=== PATIENT | male | born 1955 | race Hispanic/Latino ===

== ENCOUNTER → 2023-03-20 | Emergency (ER) | payer OTHER ==
[~2023-03-20] MED LIST: ALBUTEROL 2.5 MG/3 ML NEB SOL ONE; AZITHROMYCIN 250 MG TAB ONE; predniSONE 20 MG TAB ONE
[2023-03-20 10:53] LABS: Absolute Lymphocytes (CBC) 1.6 K/uL (0.7-4.9); Hematocrit 39.7 % (39.6-49.0); Lymphocytes % 20.2 % (15.3-44.8); MPV 7.3 fL (7.6-11.3); Platelets 302 thou/uL (152-406); RBC Red Blood Cell Count 4.56 M/uL (4.33-5.43)
[2023-03-20 11:14] LABS: Potassium 3.4 mEq/L (3.5-5.1); Troponin High Sensitivity 12.2 pg/mL (<58.9)
--- NOTE | 2023-03-20 11:36 | RAD REPORT ---
EXAM DESCRIPTION: Kristen Single View03/20/2023 11:08 am CLINICAL HISTORY: Shortness of breath COMPARISON: none FINDINGS: The lungs are moderately hyperaerated Mild interstitial opacities within the lung bases probably chronic Heart is normal size. Pacemaker leads in place IMPRESSION: COPD without visualization acute abnormality
--- NOTE | 2023-03-20 12:08 | EDPHYS ---
Physician Documentation [facility] Name: Dung Bone Age: 68 yrs Sex: Male : 1955 Arrival Date: 03/20/2023 Time: 09:51 Bed 10 Private MD: ED Physician Dago Ayala HPI: 03/20 10:29 This 68 yrs old Male presents to ER via Ambulatory with complaints of ec2 Breathing Difficulty, Pain All Over. 10:29 Patient arrives today due to concern for difficulty breathing. Patient reports a ec2 history of COPD, is on multiple inhalers however has not been taking them. Patient reports he been having a frequent productive cough. Patient reports no fevers or chills, no nausea or vomiting.. Historical: - Allergies: 10: No Known Allergies; iw - Home Meds: 10: budesonide-formoterol 160-4.5 mcg/actuation inhalation HFA Aerosol Inhaler [Active]; iw - PMHx: 10:26 copd; asbestosis; CVA; iw - PSHx: 10: PACEMAKER; CABG; iw - Social history:: Smoking status: Patient uses street drugs, marijuana. ROS: 10:29 Constitutional: as per hpi ec2 Exam: 10:29 Constitutional: GEN: NAD Head: atraumatic Eyes: EOMI Ears: External ears are ec2 normal. CV: regular rate LUNGS: no respiratory distress, occasional scattered wheeze noted, no rales ABD: non-distended SKIN: no evidence of rashes MSK: no evidence of trauma NEURO: moves all extremities equally Vital Signs: 10:29 BP 175 / 92; Pulse 89; Resp 19; Temp 98.5(O); Pulse Ox 96% on R/A; Weight 68.95 kg; iw Height 5 ft. 6 in. ; 12:13 BP 154 / 94; Pulse 74; Resp 19; Pulse Ox 99% on R/A; iw 10:29 Body Mass Index 24.53 (68.95 kg, 167.64 cm) iw MDM: 10:28 Patient medically screened. ec2 10:29 Data reviewed: vital signs. ED course: Patient arrives today for evaluation of cough ec2 and cold symptoms along with shortness of breath. Examination remarkable for pulmonary findings as noted above. Will obtain lab work, EKG, chest x-ray. Currently considering process such as COPD exacerbation, pneumonia, viral infection, ACS. Will treat the patient with DuoNeb, steroids and azithromycin.. 11:45 ED course: Metabolic profile pertinent for slight hypokalemia, CBC is reassuring. ec2 Troponin within normal ranges. Chest x-ray shows COPD without focal infiltrate, flu and COVID-negative. I suspect COPD exacerbation, will discharge home with instruction for inhalers as well as started on azithromycin and steroids. . 12:07 ED course: Patient already has inhalers at home, will discharge with steroids and ec2 azithromycin.. 12:09 ED course: EKG independently reviewed and interpreted by me, shows normal sinus rhythm, ec2 rate 77, no acute ST segment elevations, intervals otherwise nonconcerning. . 12 10:28 Order name: Basic Metabolic Panel; Complete Time: 11:45 ec2 03/20 10:28 Order name: CBC with Diff; Complete Time: 11:45 ec2 03/20 10:28 Order name: Troponin HS; Complete Time: 11:45 ec2 03/20 10:28 Order name: COVID-19 SARS RT PCR; Complete Time: 11:45 ec2 03/20 10:28 Order name: Influenza Screen (a \T\ B); Complete Time: 11:45 ec2 03/20 10:28 Order name: XRAY Chest (1 view); Complete Time: 11:45 ec2 03/20 10:28 Order name: EKG; Complete Time: 10:29 ec2 03/20 10:28 Order name: Cardiac monitoring; Complete Time: 12:09 ec2 03/20 10:28 Order name: EKG - Nurse/Tech; Complete Time: 12:09 ec2 03/20 10:28 Order name: IV Saline Lock; Complete Time: 11:04 ec2 03/20 10:28 Order name: Labs collected and sent; Complete Time: 11:04 ec2 03/20 10:28 Order name: O2 Per Protocol; Complete Time: 11:04 ec2 03/20 10:28 Order name: O2 Sat Monitoring; Complete Time: 11:04 ec2 Administered Medications: 11:27 Drug: DuoNeb Nebulize (3:1) (2.5 mg - 0.5 mg) 3 ml Nebulizer once Route: Nebulizer; 11:56 Follow up: Response: No adverse reaction ap3 11:27 Drug: predniSONE PO 40 mg PO once Route: PO; iw 11:56 Follow up: Response: No adverse reaction ap3 11:27 Drug: AZITHromycin PO 500 mg PO once Route: PO; iw 11:56 Follow up: Response: No adverse reaction ap3 Disposition Summary: 03/20/23 12:07 Discharge Ordered Notes: Location: Home ec2 Condition: Stable ec2 Diagnosis - COPD/ Chronic obstructive pulmonary disease with (acute) exacerbation ec2 Followup: ec2 - With: Private Physician - When: - Reason: Recheck today's complaints Discharge Instructions: - Discharge Summary Sheet ec2 - Chronic Obstructive Pulmonary Disease Exacerbation ec2 Forms: - Medication Reconciliation Form ec2 - Thank You Letter ec2 - Antibiotic Education ec2 - Prescription Opioid Use ec2 - Patient Portal Instructions ec2 - Leadership Thank You Letter ec2 Prescriptions: - azithromycin 250 mg Oral tablet - take 1 tablet ORAL route every morning for 4 days; 4 tablet; Refills: 0, ec2 Product Selection Permitted - Prednisone 20 mg Oral Tablet - take 2 tablets ORAL route once daily for 5 days; 10 tablet; Refills: 0, Product ec2 Selection Permitted Signatures: Dispatcher [employer] Ann Marie Dumont RN RN iw Dago Ayala MD MD ec2 Rima King RN ap3
--- NOTE | 2023-03-20 12:08 | ER ---
Nurse's Notes [facility] Name: Dung Bone Age: 68 yrs Sex: Male : 1955 Arrival Date: 03/20/2023 Time: 09:51 Bed 10 Private MD: Diagnosis: COPD/ Chronic obstructive pulmonary disease with (acute) exacerbation Presentation: 03/20 10:25 Chief complaint: Patient states: lungs are hurting for a couple days, +SOB , iw +productive cough , no fever. 10:25 Coronavirus screen: Client presents with at least one sign or symptom that may indicate iw coronavirus-19. Ebola Screen: Patient negative for fever greater than or equal to 101.5 degrees Fahrenheit, and additional compatible Ebola Virus Disease symptoms Patient denies exposure to infectious person. Patient denies travel to an Ebola-affected area in the 21 days before illness onset. No symptoms or risks identified at this time. 10:25 Method Of Arrival: Ambulatory iw 10:25 Acuity: ALEX 3 iw 10:29 Initial Sepsis Screen: Does the patient meet any 2 criteria? No. Patient's initial iw sepsis screen is negative. Does the patient have a suspected source of infection? No. Patient's initial sepsis screen is negative. Risk Assessment: Do you want to hurt yourself or someone else? Patient reports no desire to harm self or others. Onset of symptoms was March 18, 2023. Historical: - Allergies: 10:26 No Known Allergies; iw - Home Meds: 10:25 budesonide-formoterol 160-4.5 mcg/actuation inhalation HFA Aerosol Inhaler [Active]; iw - PMHx: 10:26 copd; asbestosis; CVA; iw - PSHx: 10:29 PACEMAKER; CABG; iw - Social history:: Smoking status: Patient uses street drugs, marijuana. Screenin:09 [facility] ED Fall Risk Assessment (Adult) Score/Fall Risk Level. Abuse screen: Denies iw threats or abuse. Denies injuries from another. Nutritional screening: No deficits noted. Tuberculosis screening: No symptoms or risk factors identified. Assessment: 12:09 Reassessment: Patient appears in no apparent distress at this time. Patient and/or iw family updated on plan of care and expected duration. Pain level reassessed. Patient is alert, oriented x 3, equal unlabored respirations, skin warm/dry/pink. Patient states feeling better. Vital Signs: 10:29 BP 175 / 92; Pulse 89; Resp 19; Temp 98.5(O); Pulse Ox 96% on R/A; Weight 68.95 kg; iw Height 5 ft. 6 in. ; 12:13 BP 154 / 94; Pulse 74; Resp 19; Pulse Ox 99% on R/A; iw 10:29 Body Mass Index 24.53 (68.95 kg, 167.64 cm) iw ED Course: 09:52 Patient arrived in ED. rg4 09:58 Dago Ayala MD is Attending Physician. ec2 10:25 Triage completed. iw 10:47 Ann Marie Melvin, RN is Primary Nurse. iw 10:47 Arm band placed on. iw 11:00 Inserted saline lock: 20 gauge in right antecubital area, using aseptic technique. iw 11:10 XRAY Chest (1 view) In Process Unspecified. EDMS 12:09 No provider procedures requiring assistance completed. iw 12:29 IV discontinued, intact, bleeding controlled, No redness/swelling at site. Pressure iw dressing applied. Administered Medications: 11:27 Drug: DuoNeb Nebulize (3:1) (2.5 mg - 0.5 mg) 3 ml Nebulizer once Route: Nebulizer; iw 11:56 Follow up: Response: No adverse reaction ap3 11:27 Drug: predniSONE PO 40 mg PO once Route: PO; iw 11:56 Follow up: Response: No adverse reaction ap3 11:27 Drug: AZITHromycin PO 500 mg PO once Route: PO; iw 11:56 Follow up: Response: No adverse reaction ap3 Medication: 12:09 VIS not applicable for this client. iw Outcome: 12:07 Discharge ordered by . ec2 12:29 Discharged to home via wheelchair, with friend, iw 12:29 Condition: stable 12:29 Discharge instructions given to patient, friend, Instructed on discharge instructions, follow up and referral plans. medication usage, Demonstrated understanding of instructions, follow-up care, medications, Prescriptions given X 2, 12:29 Patient left the ED. iw Signatures: Dispatcher [employer] EDAnn Marie Russ RN RN iw Loraine Peng rg4 Rima King RN RN ap3 Dago Ayala MD MD ec2 Corrections: (The following items were deleted from the chart) 10:32 10:25 Chief complaint: Patient states: lungs are hurting for a couple days, +SOB iw iw
[2023-03-20 12:51] VITALS: BP 154/94; TEMP 98.5; O2SAT 99
--- NOTE | 2023-03-21 15:08 | EKG ---
Test Date: 2023-03-20 Test Time: 12:03:08 [place] Operator: JUVENTINO MEASUREMENT RESULTS: Intervals: Rate: 77 MI: 178 QRSD: 84 QT: 374 QTc: 423 [place]: P: 65 MI: 178 QRS: -42 T: 7 INTERPRETIVE STATEMENTS: Sinus rhythm with premature supraventricular complexes Left axis deviation Inferior infarct, age undetermined Anterolateral infarct, age undetermined Abnormal ECG No previous ECG available for comparison Electronically Signed On 03-21-23 15:07:37 STEWARD/STEWARDESS DECK by Milton Fernandez
== END ==
LOC: ER 09:51
DX: J44.1 Chronic obstructive pulmonary disease with (acute) exacerbation (principal); Z11.52 Encounter for screening for COVID-19; Z95.0 Presence of cardiac pacemaker; Z95.1 Presence of aortocoronary bypass graft
CPT/HCPCS: 93005; 85025; 80048; 36415; 84484; 87635; 87804 ×2; 71045; 94640; 99284; J7512; J7613